=== PATIENT | female | born 1945 | race Asian ===

== ENCOUNTER 2024-07-03 22:41 | Inpatient (IN) | payer MEDICARE ==
[~2024-07-03] VITALS: Ht 157.5 cm; Wt 55.0 kg
[2024-07-04] MEDS: ONDANSETRON HCL 4 MG/2 ML VIAL IVP ONE (00:10)
[2024-07-04] MEDS: SODIUM CHLORIDE 0.9% 2,000 ML IV ONE (00:10)
[2024-07-04 00:19] LABS: EOSINOPHILS % (AUTO) 0 % (1.0-6.0); MEAN CORPUSCULAR HGB CONC 32.8 G/dL (31.0-37.0); RED CELL DISTRIBUTION WIDTH 14.2 % (11.5-14.5); WHITE BLOOD COUNT (AUTO) 8.6 K/uL (4.5-11.0)
[2024-07-04] MEDS: INSULIN REGULAR, HUMAN 100 UNITS/ML IVP ONE (00:20)
[2024-07-04 00:26] LABS: BASOPHILS % (AUTO) 0.2 % (0.0-2.0); HEMATOCRIT 41.8 % (36-46); HEMOGLOBIN 13.7 g/dL (12.0-16.0); LYMPHOCYTES # (AUTO) 1.3 K/uL (1.0-4.8); LYMPHOCYTES % (AUTO) 15.3 % (22.0-44.0); MEAN CORPUSCULAR HEMOGLOBIN 25.2 pg (26.0-34.0); MEAN CORPUSCULAR VOLUME 77 fL (80-100); MONOCYTES # (AUTO) 0.6 K/uL (0.1-1.0); MONOCYTES % (AUTO) 7.1 % (2.0-9.0); NEUTROPHILS # (AUTO) 6.7 K/uL (1.8-7.7); NEUTROPHILS % (AUTO) 77.4 % (40.0-70.0); PLATELET COUNT (AUTO) 323 K/uL (150-450); RED BLOOD CELL COUNT(AUTO) 5.43 MIL/uL (4.00-5.20)
[2024-07-04 00:29] LABS: RBC MORPHOLOGY COMMENT ABNORMAL RBC MORPH
[2024-07-04 00:35] LABS: COVID AG,FIA SOURCE NASAL SWAB
[2024-07-04 00:36] LABS: ALANINE AMINOTRANSFERASE 23 U/L (12-78); ALBUMIN 3.8 g/dL (3.4-5.0); ALKALINE PHOSPHATASE 147 U/L (46-116); ANION GAP 21 mmol/L (8-16); ASPARTATE AMINOTRANSFERASE 17 U/L (15-37); BILIRUBIN,TOTAL 0.5 mg/dL (0.1-1.0); CALCIUM, TOTAL 9.4 mg/dL (8.8-10.5); CARBON DIOXIDE 19 mmol/L (22-29); CHLORIDE 89 mmol/L (98-107); CREATININE 1.18 mg/dL (0.60-1.30); GLOMERULAR FILTR. RATE CALC 45 mL/min (>60); LACTIC ACID 3.4 mmol/L (0.4-2.0); LIPASE 178 U/L (16-77); POTASSIUM 4.5 mmol/L (3.5-5.1); SODIUM SERUM 129 mmol/L (136-145); TOTAL PROTEIN, SERUM 8.3 g/dL (6.4-8.2); TROPONIN I-HIGH SENSITIVITY 67 ng/L (<51); UREA NITROGEN, BLOOD 22 mg/dL (7-18)
[2024-07-04 00:39] LABS: B-TYPE NATRIURETIC PEPTIDE 332 pg/mL (0-100)
[2024-07-04 00:41] LABS: GLUCOSE,RANDOM 452 mg/dL (70-110)
[2024-07-04 00:56] LABS: APPEARANCE,URINE CLEAR (CLEAR); BILIRUBIN,URINE NEGATIVE (NEGATIVE); COLOR,URINE LIGHT YELLOW (YELLOW); GLUCOSE, URINE (UA) >=1000 mg/dL (NEGATIVE); KETONES,URINE 40-60 mg/dL (NEGATIVE); LEUKOCYTE ESTERASE ,URINE NEGATIVE (NEGATIVE); NITRATE,URINE NEGATIVE (NEGATIVE); OCCULT BLOOD,URINE NEGATIVE (NEGATIVE); PH,URINE 5.5 (5.0-8.0); PROTEIN,URINE 30-70 mg/dL (NEGATIVE); UROBILINOGEN,URINE <=1.0 mg/dL (<=1.0)
[2024-07-04] MEDS ORDERED: FLUO-342 PO (00:59)
[2024-07-04] MEDS ORDERED: SITA100 PO (00:59)
[2024-07-04] MEDS ORDERED: DORZ10DR6 OU (00:59)
[2024-07-04] MEDS ORDERED: ASPI-1450 PO (00:59)
[2024-07-04] MEDS ORDERED: NIFE-141 PO (00:59)
[2024-07-04] MEDS ORDERED: LANS-78 PO (00:59)
[2024-07-04] MEDS ORDERED: LOSA-381 PO (00:59)
[2024-07-04] MEDS ORDERED: CARV6 PO (00:59)
[2024-07-04] MEDS ORDERED: SPIR-37 PO (00:59)
[2024-07-04] MEDS ORDERED: ATOR20TA PO (00:59)
[2024-07-04] MEDS ORDERED: VALP250C48 PO (00:59)
[2024-07-04] MEDS ORDERED: INSLAN SQ (00:59)
[2024-07-04 01:19] LABS: INFLUENZA TYPE A NEGATIVE FOR TYPE A (NEGATIVE); INFLUENZA TYPE B NEGATIVE FOR TYPE B (NEGATIVE); SARS-COV2 (COVID) ANTIGEN,FIA Negative (Negative)
[2024-07-04 01:20] LABS: GLUCOMETER DEV NAME(LOC) ERT.6; GLUCOSE,POINT OF CARE 338 MG/DL (70-110)
[2024-07-04 01:27] LABS: BACTERIA,URINE None Seen /HPF (None Seen); RBC,URINE None Seen /HPF (0-2); SQUAMOUS EPITHELIAL CELL,UR Few /LPF (None Seen); WBC,URINE None Seen /HPF (0-5)
[2024-07-04 01:36] LABS: TROPONIN I-HIGH SENSITIVITY 75 ng/L (<51)
[2024-07-04] MEDS ORDERED: IOHEXOL 350 MG/ML 100 ML VIAL ONE (01:55)
[2024-07-04] MEDS: SODIUM CHLORIDE 0.9% 1,000 ML IV ONE (02:09)
[2024-07-04 02:10] LABS: ABG CARBOXYHEMOGLOBIN 1.1 % (0.5-1.5); ABG HCO3 21.3 mmol/L (21.0-28.0); ABG METHEMOGLOBIN 0.4 % (0.0-1.5); ABG OXYGEN CONTENT 17.3 mL/dL (15.0-23.0); ABG OXYGEN SATURATION 96.4 % (94.0-98.0); ABG PCO2 29 mmHg (32.0-45.0); ABG PH 7.435 (7.350-7.450); ABG TOTAL HEMOGLOBIN 12.9 G/dL (12.0-16.0); PO2, ARTERIAL BG 81.2 mmHg (83.0-108.0); SOURCE, BLOOD GAS ARTERIAL; TEMPERATURE, FAHRENHEIT, BG 98.4 FAHREN (96.0-98.6)
[2024-07-04 02:10] LABS: GLUCOMETER DEV NAME(LOC) ERT.6; GLUCOSE,POINT OF CARE 267 MG/DL (70-110)
[2024-07-04 02:11] LABS: ABG A-A DIFF O2 33.6 mmHg (10-20.0); ALLEN TEST, BLOOD GAS Positive; O2 DEVICE,BLOOD GAS ROOM AIR (ROOM AIR); SITE, BLOOD GAS RT RADIAL
[2024-07-04] MEDS: OMEPRAZOLE 20 MG CAPSULE PO ONE (04:48)
[2024-07-04] MEDS: LORazepam 2 MG/ML VIAL IVP ONE (04:49)
[2024-07-04] MEDS: RINGERS SOLUTION,LACTATED 1,000 ML IV ONE (04:49)
[2024-07-04 06:56] LABS: GLUCOMETER DEV NAME(LOC) ERT.6; GLUCOSE,POINT OF CARE 259 MG/DL (70-110)
[2024-07-04 07:47] VITALS: BP 170/78; PULSE 70; RESP 18; TEMP 98.3; O2SAT 98
[2024-07-04 08:23] VITALS: BP 170/78; PULSE 69; RESP 18; TEMP 98.3; O2SAT 97
[2024-07-04] MEDS: HydrALAZINE HCL 20 MG/ML VIAL IVP PRN (11:09)
[2024-07-04] MEDS: ONDANSETRON HCL 4 MG/2 ML VIAL IVP PRN (11:10)
[2024-07-04 12:00] VITALS: BP 153/88; PULSE 96; RESP 18; TEMP 97.6; O2SAT 99
[2024-07-04] MEDS ORDERED: DEXTROSE 50%-WATER 25 GM/50 ML SYRINGE IVP PRN (12:30)
[2024-07-04] MEDS: INSULIN LISPRO 100 UNITS/ML SQ PRN (12:34)
[2024-07-04] MEDS: SODIUM CHLORIDE 0.45% 1,000 ML IV ONE (12:37)
[2024-07-04 12:51] LABS: GLUCOMETER DEV NAME(LOC) 5N.2C; GLUCOSE,POINT OF CARE 357 MG/DL (70-110)
[2024-07-04 15:06] LABS: GLUCOMETER DEV NAME(LOC) 5N.1D; GLUCOSE,POINT OF CARE 336 MG/DL (70-110)
[2024-07-04 15:47] LABS: TROPONIN I-HIGH SENSITIVITY 77 ng/L (<51)
[2024-07-04 15:58] VITALS: BP 135/69; PULSE 86; RESP 18; TEMP 98; O2SAT 98
[2024-07-04] MEDS: PANTOPRAZOLE SODIUM 40 MG DR TABLET PO SCH (17:26)
[2024-07-04 18:40] LABS: BASOPHILS % (AUTO) 0.4 % (0.0-2.0); EOSINOPHILS % (AUTO) 1.1 % (1.0-6.0); HEMATOCRIT 39.4 % (36-46); LYMPHOCYTES # (AUTO) 2.4 K/uL (1.0-4.8); LYMPHOCYTES % (AUTO) 25.6 % (22.0-44.0); MEAN CORPUSCULAR HEMOGLOBIN 25.4 pg (26.0-34.0); MEAN CORPUSCULAR HGB CONC 32.9 G/dL (31.0-37.0); MEAN CORPUSCULAR VOLUME 77 fL (80-100); MONOCYTES # (AUTO) 0.8 K/uL (0.1-1.0); NEUTROPHILS # (AUTO) 5.9 K/uL (1.8-7.7); NEUTROPHILS % (AUTO) 63.9 % (40.0-70.0); PLATELET COUNT (AUTO) 317 K/uL (150-450); RED CELL DISTRIBUTION WIDTH 14.4 % (11.5-14.5); WHITE BLOOD COUNT (AUTO) 9.2 K/uL (4.5-11.0)
[2024-07-04 18:52] LABS: CALCIUM, TOTAL 8.7 mg/dL (8.8-10.5); CREATININE 1.23 mg/dL (0.60-1.30); POTASSIUM 4.1 mmol/L (3.5-5.1)
[2024-07-04 19:05] LABS: BILIRUBIN,TOTAL 0.3 mg/dL (0.1-1.0); MAGNESIUM 1.8 mg/dL (1.80-2.40)
[2024-07-04 19:46] LABS: GLUCOMETER DEV NAME(LOC) 5N.2C; GLUCOSE,POINT OF CARE 261 MG/DL (70-110)
[2024-07-04 19:46] LABS: GLUCOMETER DEV NAME(LOC) 5N.2C; GLUCOSE,POINT OF CARE 213 MG/DL (70-110)
[2024-07-04 21:00] VITALS: BP 149/79; PULSE 93; RESP 20; TEMP 98.7; O2SAT 96
[2024-07-04] MEDS: SODIUM CHLORIDE 0.45% 1,000 ML IV SCH (21:13)
[2024-07-04] MEDS: CARVEDILOL 3.125 MG TABLET PO SCH (21:13)
[2024-07-04 22:35] LABS: CALCIUM, TOTAL 8.5 mg/dL (8.8-10.5); CREATININE 1.08 mg/dL (0.60-1.30); POTASSIUM 3.6 mmol/L (3.5-5.1)
[2024-07-04 23:45] LABS: GLUCOMETER DEV NAME(LOC) 5N.1D; GLUCOSE,POINT OF CARE 248 MG/DL (70-110)
[2024-07-04 23:45] LABS: GLUCOMETER DEV NAME(LOC) 5N.1D; GLUCOSE,POINT OF CARE 184 MG/DL (70-110)
[2024-07-05] VITALS (7 sets, daily range): BP systolic 123–150; BP diastolic 56–81; PULSE 70–94; RESP 18–20; TEMP 98.3–98.9; O2SAT 94–98
[2024-07-05 01:36] LABS: GLUCOMETER DEV NAME(LOC) 5N.2C; GLUCOSE,POINT OF CARE 258 MG/DL (70-110)
[2024-07-05 08:45] LABS: GLUCOMETER DEV NAME(LOC) 5N.2C; GLUCOSE,POINT OF CARE 221 MG/DL (70-110)
[2024-07-05 08:45] LABS: GLUCOMETER DEV NAME(LOC) 5N.1D; GLUCOSE,POINT OF CARE 111 MG/DL (70-110)
[2024-07-05 08:45] LABS: GLUCOMETER DEV NAME(LOC) 5N.2C; GLUCOSE,POINT OF CARE 230 MG/DL (70-110)
[2024-07-05 09:16] LABS: ANION GAP 12 mmol/L (8-16); CALCIUM, TOTAL 8.4 mg/dL (8.8-10.5); CARBON DIOXIDE 23 mmol/L (22-29); CHLORIDE 99 mmol/L (98-107); GLOMERULAR FILTR. RATE CALC > 60 mL/min (>60); GLUCOSE,RANDOM 193 mg/dL (70-110); PHOSPHORUS 2.7 mg/dL (2.5-4.9); POTASSIUM 3.6 mmol/L (3.5-5.1); SODIUM SERUM 134 mmol/L (136-145); UREA NITROGEN, BLOOD 12 mg/dL (7-18)
[2024-07-05] MEDS: NIFEdipine 30 MG ER TABLET PO SCH (09:36)
[2024-07-05 09:43] LABS: TROPONIN I-HIGH SENSITIVITY 131 ng/L (<51)
[2024-07-05] MEDS ORDERED: NIFEdipine 30 MG ER TABLET PO SCH (10:15)
[2024-07-05] MEDS ORDERED: SPIRONOLACTONE 25 MG TABLET PO SCH (10:15)
[2024-07-05] MEDS ORDERED: CARVEDILOL 6.25 MG TABLET PO SCH (10:15)
[2024-07-05] MEDS: ASPIRIN 81 MG CHEWABLE TABLET PO SCH (11:13)
[2024-07-05] MEDS: ATORVASTATIN CALCIUM 20 MG TABLET PO SCH (11:13)
[2024-07-05] MEDS: LOSARTAN POTASSIUM 25 MG TABLET PO SCH (11:13)
[2024-07-05 11:16] LABS: GLUCOMETER DEV NAME(LOC) 5N.1D; GLUCOSE,POINT OF CARE 329 MG/DL (70-110)
[2024-07-05] MEDS: INSULIN GLARGINE,HUM.REC.ANLOG 100 UNITS/ML SQ SCH (11:19)
[2024-07-05] MEDS: DORZOLAMIDE HCL 2% 10 ML OPHTHALMIC SOLUTION OU SCH (12:00)
[2024-07-05] MEDS: SitaGLIPtin PHOSPHATE 100 MG TABLET PO SCH (12:00)
[2024-07-05] MEDS: FLUoxetine HCL 10 MG CAPSULE PO SCH (12:00)
[2024-07-05] MEDS: VALPROIC ACID 250 MG CAPSULE PO SCH (12:00)
[2024-07-05 14:31] LABS: GLUCOMETER DEV NAME(LOC) 5N.2C; GLUCOSE,POINT OF CARE 201 MG/DL (70-110)
[2024-07-05 17:05] LABS: GLUCOMETER DEV NAME(LOC) 5N.2C; GLUCOSE,POINT OF CARE 103 MG/DL (70-110)
[2024-07-05 20:56] LABS: GLUCOMETER DEV NAME(LOC) 5N.2C; GLUCOSE,POINT OF CARE 141 MG/DL (70-110)
[2024-07-05 21:06] LABS: GLUCOMETER DEV NAME(LOC) 5N.1D; GLUCOSE,POINT OF CARE 74 MG/DL (70-110)
[2024-07-05 21:06] LABS: GLUCOMETER DEV NAME(LOC) 5N.1D; GLUCOSE,POINT OF CARE 321 MG/DL (70-110)
[2024-07-06 01:51] LABS: GLUCOMETER DEV NAME(LOC) 5N.2C; GLUCOSE,POINT OF CARE 193 MG/DL (70-110)
[2024-07-06 01:51] LABS: GLUCOMETER DEV NAME(LOC) 5N.2C; GLUCOSE,POINT OF CARE 192 MG/DL (70-110)
[2024-07-06 06:31] LABS: GLUCOMETER DEV NAME(LOC) 5N.1D; GLUCOSE,POINT OF CARE 177 MG/DL (70-110)
[2024-07-06 06:31] LABS: GLUCOMETER DEV NAME(LOC) 5N.1D; GLUCOSE,POINT OF CARE 170 MG/DL (70-110)
[2024-07-06 06:31] LABS: GLUCOMETER DEV NAME(LOC) 5N.1D; GLUCOSE,POINT OF CARE 101 MG/DL (70-110)
[2024-07-06 07:30] VITALS: BP 130/67; PULSE 72; RESP 18; TEMP 98.7; O2SAT 97
[2024-07-06 07:34] LABS: CALCIUM, TOTAL 8.3 mg/dL (8.8-10.5); CREATININE 0.91 mg/dL (0.60-1.30); POTASSIUM 3.5 mmol/L (3.5-5.1)
[2024-07-06 07:38] LABS: TROPONIN I-HIGH SENSITIVITY 82 ng/L (<51)
[2024-07-06 07:54] LABS: THYROID STIMULATING HORMONE 1.94 uIU/mL (0.36-3.74)
[2024-07-06 08:00] LABS: GLUCOMETER DEV NAME(LOC) 5N.2C; GLUCOSE,POINT OF CARE 112 MG/DL (70-110)
[2024-07-06 11:30] VITALS: BP 138/74; PULSE 89; RESP 18; TEMP 98; O2SAT 97
[2024-07-06 13:56] LABS: GLUCOMETER DEV NAME(LOC) 5N.2C; GLUCOSE,POINT OF CARE 274 MG/DL (70-110)
[2024-07-06 13:56] LABS: GLUCOMETER DEV NAME(LOC) 5N.2C; GLUCOSE,POINT OF CARE 299 MG/DL (70-110)
[2024-07-06 13:56] LABS: GLUCOMETER DEV NAME(LOC) 5N.2C; GLUCOSE,POINT OF CARE 225 MG/DL (70-110)
[2024-07-06 15:15] VITALS: BP 108/49; PULSE 72; RESP 18; TEMP 99; O2SAT 98
[2024-07-06 20:56] LABS: GLUCOMETER DEV NAME(LOC) 5N.2C; GLUCOSE,POINT OF CARE 126 MG/DL (70-110)
[2024-07-06 20:56] LABS: GLUCOMETER DEV NAME(LOC) 5N.2C; GLUCOSE,POINT OF CARE 136 MG/DL (70-110)
[2024-07-06 21:10] VITALS: BP 123/72; PULSE 74; RESP 20; TEMP 98.4; O2SAT 98
[2024-07-06 22:55] LABS: GLUCOMETER DEV NAME(LOC) 5N.2C; GLUCOSE,POINT OF CARE 195 MG/DL (70-110)
[2024-07-07 00:30] VITALS: BP 119/58; PULSE 83; RESP 20; TEMP 98.2; O2SAT 96
[2024-07-07 05:00] VITALS: BP 129/68; PULSE 71; RESP 20; TEMP 98.7; O2SAT 96
[2024-07-07 07:55] LABS: GLUCOMETER DEV NAME(LOC) 5N.1D; GLUCOSE,POINT OF CARE 240 MG/DL (70-110)
[2024-07-07 08:29] VITALS: BP 131/75; PULSE 96; RESP 18; TEMP 97.7; O2SAT 98
[2024-07-07 12:42] VITALS: BP 137/68; PULSE 95; RESP 18; TEMP 98; O2SAT 97
[2024-07-07 13:10] LABS: GLUCOMETER DEV NAME(LOC) 5S.2D; GLUCOSE,POINT OF CARE 228 MG/DL (70-110)
[2024-07-07 15:47] VITALS: BP 115/49; PULSE 76; RESP 18; TEMP 99.3; O2SAT 94
[2024-07-07 20:16] LABS: GLUCOMETER DEV NAME(LOC) 5S.1D; GLUCOSE,POINT OF CARE 167 MG/DL (70-110)
[2024-07-07] MEDS: CARVEDILOL 6.25 MG TABLET PO SCH (21:16)
[2024-07-07 21:47] VITALS: BP 139/78; PULSE 75; RESP 19; TEMP 98.6; O2SAT 96
[2024-07-08 06:21] LABS: GLUCOMETER DEV NAME(LOC) 5S.1D; GLUCOSE,POINT OF CARE 142 MG/DL (70-110)
[2024-07-08 06:35] VITALS: BP 140/77; PULSE 77; RESP 18; TEMP 98.9; O2SAT 97
[2024-07-08 06:41] LABS: BASOPHILS % (AUTO) 0.2 % (0.0-2.0); EOSINOPHILS % (AUTO) 0.9 % (1.0-6.0); HEMATOCRIT 37.7 % (36-46); HEMOGLOBIN 12.6 g/dL (12.0-16.0); LYMPHOCYTES # (AUTO) 1.8 K/uL (1.0-4.8); LYMPHOCYTES % (AUTO) 17.6 % (22.0-44.0); MEAN CORPUSCULAR HEMOGLOBIN 25.7 pg (26.0-34.0); MEAN CORPUSCULAR HGB CONC 33.4 G/dL (31.0-37.0); MEAN CORPUSCULAR VOLUME 77 fL (80-100); MONOCYTES # (AUTO) 1.2 K/uL (0.1-1.0); MONOCYTES % (AUTO) 11.6 % (2.0-9.0); NEUTROPHILS # (AUTO) 7.1 K/uL (1.8-7.7); NEUTROPHILS % (AUTO) 69.7 % (40.0-70.0); PLATELET COUNT (AUTO) 266 K/uL (150-450); RED CELL DISTRIBUTION WIDTH 14.8 % (11.5-14.5); WHITE BLOOD COUNT (AUTO) 10.2 K/uL (4.5-11.0)
[2024-07-08 06:58] LABS: CALCIUM, TOTAL 8.6 mg/dL (8.8-10.5); CREATININE 0.96 mg/dL (0.60-1.30); POTASSIUM 4.1 mmol/L (3.5-5.1)
[2024-07-08 08:51] LABS: GLUCOMETER DEV NAME(LOC) 5S.1D; GLUCOSE,POINT OF CARE 325 MG/DL (70-110)
[2024-07-08 09:18] VITALS: BP 138/69; PULSE 77; RESP 20; TEMP 99.7; O2SAT 98
[2024-07-08 11:00] VITALS: BP 135/69; PULSE 70; RESP 20; TEMP 98.9; O2SAT 97
[2024-07-08 11:45] LABS: GLUCOMETER DEV NAME(LOC) 5S.1D; GLUCOSE,POINT OF CARE 237 MG/DL (70-110)
== END 2024-07-08 15:06 | DRG 637 ==
LOC: EMS 22:42 → EDH 07-04 01:24 → 5N 07-04 08:15 → 4E 07-07 15:50
PROVIDERS: ADMIT Family Medicine; ATTEND Family Medicine
DX: E11.10 Type 2 diabetes mellitus with ketoacidosis without coma (principal); I50.43 Acute on chronic combined systolic (congestive) and diastolic (congestive) heart failure; N17.9 Acute kidney failure, unspecified; I11.0 Hypertensive heart disease with heart failure; K21.9 Gastro-esophageal reflux disease without esophagitis; Z20.822 Contact with and (suspected) exposure to COVID-19; R79.89 Other specified abnormal findings of blood chemistry; E78.5 Hyperlipidemia, unspecified; F32.A Depression, unspecified; Z91.010 Allergy to peanuts; Z79.4 Long term (current) use of insulin; Z88.8 Allergy status to other drugs, medicaments and biological substances
CPT/HCPCS: 36600; 71045; 74177; 80048; 80053; 80076; 81001; 82009; 82805; 82962; 83036; 83605; 83690; 83735; 83880; 84100; 84443; 84484; 85025; 87081; 87481; 87804; 93005; 93306; 99285; G0378; J0360; J1815; J2060; J2405; J7030; J7120; 36415-L1; 36415-TC

== ENCOUNTER 2024-09-01 14:41 | Inpatient (IN) | payer MEDICARE, OTHER ==
[~2024-09-01] VITALS: Ht 144.8 cm; Wt 63.1 kg
[~2024-09-01 14:41] MED LIST: ASPI-1450 PO; ATOR20TA PO; CARV6.25 PO; DORZ10DR6 OU; FLUO-342 PO; INSLAN SQ; LANS-78 PO; LOSA-381 PO; NIFE-141 PO; SITA100 PO; SPIR-37 PO; VALP250C48 PO
[2024-09-01 16:08] LABS: ANION GAP 11 mmol/L (8-16); CALCIUM, TOTAL 8.3 mg/dL (8.8-10.5); CARBON DIOXIDE 23 mmol/L (22-29); CHLORIDE 102 mmol/L (98-107); CREATININE 1.53 mg/dL (0.60-1.30); GLOMERULAR FILTR. RATE CALC 33 mL/min (>60); GLUCOSE,RANDOM 185 mg/dL (70-110); POTASSIUM 5.1 mmol/L (3.5-5.1); SODIUM SERUM 136 mmol/L (136-145); UREA NITROGEN, BLOOD 28 mg/dL (7-18)
[2024-09-01 16:09] LABS: BASOPHILS % (AUTO) 0.6 % (0.0-2.0); EOSINOPHILS % (AUTO) 2.4 % (1.0-6.0); HEMATOCRIT 38.7 % (36-46); HEMOGLOBIN 12.6 g/dL (12.0-16.0); LYMPHOCYTES # (AUTO) 1.9 K/uL (1.0-4.8); LYMPHOCYTES % (AUTO) 30.6 % (22.0-44.0); MEAN CORPUSCULAR HEMOGLOBIN 25.4 pg (26.0-34.0); MEAN CORPUSCULAR HGB CONC 32.6 G/dL (31.0-37.0); MEAN CORPUSCULAR VOLUME 78 fL (80-100); MONOCYTES # (AUTO) 0.6 K/uL (0.1-1.0); MONOCYTES % (AUTO) 9.4 % (2.0-9.0); NEUTROPHILS # (AUTO) 3.5 K/uL (1.8-7.7); PLATELET COUNT (AUTO) 218 K/uL (150-450); RED BLOOD CELL COUNT(AUTO) 4.96 MIL/uL (4.00-5.20); RED CELL DISTRIBUTION WIDTH 15.7 % (11.5-14.5); WHITE BLOOD COUNT (AUTO) 6.2 K/uL (4.5-11.0)
[2024-09-01 16:14] LABS: ALBUMIN 2.6 g/dL (3.4-5.0); BILIRUBIN,DIRECT 0.1 mg/dL (0.00-0.20); BILIRUBIN,TOTAL 0.2 mg/dL (0.1-1.0); TOTAL PROTEIN, SERUM 6.8 g/dL (6.4-8.2)
[2024-09-01 16:18] LABS: CREATINE KINASE, TOTAL ONLY 43 U/L (26-192); VALPROIC ACID 66 mcg/mL (50-100)
[2024-09-01 16:20] LABS: TROPONIN I-HIGH SENSITIVITY 108 ng/L (<51)
[2024-09-01 16:31] LABS: B-TYPE NATRIURETIC PEPTIDE 71 pg/mL (0-100)
[2024-09-01 18:15] LABS: TROPONIN I-HIGH SENSITIVITY 106 ng/L (<51)
[2024-09-01] MEDS ORDERED: NIFE10CA50 PO (19:05)
[2024-09-01] MEDS ORDERED: ACETAMINOPHEN 325 MG TABLET PO PRN (20:30)
[2024-09-01] MEDS ORDERED: MORPHINE SULFATE 2 MG/ML SYRINGE IVP PRN (20:30)
[2024-09-01] MEDS ORDERED: MAGNESIUM HYDROXIDE SUSPENSION 30 ML UDCUP PO PRN (20:30)
[2024-09-01] MEDS ORDERED: BISACODYL 10 MG RECTAL RECTAL SUPPOSITORY PR PRN (20:30)
[2024-09-01] MEDS ORDERED: ONDANSETRON HCL 4 MG/2 ML VIAL IVP PRN (20:30)
[2024-09-01] MEDS ORDERED: HYDROCODONE/ACETAMINOPHEN 5-325 MG TABLET PO PRN (20:30)
[2024-09-01] MEDS ORDERED: ZOLPIDEM TARTRATE 5 MG TABLET PO PRN (20:30)
[2024-09-01] MEDS: DOCUSATE SODIUM 100 MG CAPSULE PO SCH (21:16)
[2024-09-01] MEDS: CARVEDILOL 6.25 MG TABLET PO SCH (21:16)
[2024-09-01] MEDS: NIFEdipine 10 MG CAPSULE PO SCH (21:16)
[2024-09-01 21:37] VITALS: BP 107/59; PULSE 80; RESP 18; TEMP 99.1; O2SAT 99
[2024-09-01] MEDS: VALPROIC ACID 250 MG CAPSULE PO SCH (22:16)
[2024-09-01] MEDS: HEPARIN SODIUM,PORCINE 5,000 UNITS/ML VIAL SQ SCH (23:12)
[2024-09-01 23:14] VITALS: BP 122/64; PULSE 61; RESP 19; TEMP 97.7; O2SAT 97
[2024-09-02] VITALS (7 sets, daily range): BP systolic 103–117; BP diastolic 50–91; PULSE 63–80; RESP 16–18; TEMP 97.5–99.1; O2SAT 95–99
[2024-09-02 07:00] LABS: BASOPHILS % (AUTO) 0.7 % (0.0-2.0); EOSINOPHILS % (AUTO) 3.9 % (1.0-6.0); HEMATOCRIT 37.3 % (36-46); HEMOGLOBIN 12.3 g/dL (12.0-16.0); LYMPHOCYTES # (AUTO) 2.3 K/uL (1.0-4.8); LYMPHOCYTES % (AUTO) 42.8 % (22.0-44.0); MEAN CORPUSCULAR HEMOGLOBIN 25.6 pg (26.0-34.0); MEAN CORPUSCULAR VOLUME 78 fL (80-100); MONOCYTES # (AUTO) 0.6 K/uL (0.1-1.0); NEUTROPHILS # (AUTO) 2.2 K/uL (1.8-7.7); NEUTROPHILS % (AUTO) 41.6 % (40.0-70.0); PLATELET COUNT (AUTO) 206 K/uL (150-450); RED BLOOD CELL COUNT(AUTO) 4.81 MIL/uL (4.00-5.20); RED CELL DISTRIBUTION WIDTH 15.9 % (11.5-14.5); WHITE BLOOD COUNT (AUTO) 5.3 K/uL (4.5-11.0)
[2024-09-02 07:11] LABS: CALCIUM, TOTAL 8.3 mg/dL (8.8-10.5); CREATININE 1.08 mg/dL (0.60-1.30); POTASSIUM 4.1 mmol/L (3.5-5.1)
[2024-09-02] MEDS: LOSARTAN POTASSIUM 25 MG TABLET PO SCH (08:50)
[2024-09-02] MEDS: ASPIRIN 81 MG CHEWABLE TABLET PO SCH (08:50)
[2024-09-02] MEDS: FLUoxetine HCL 10 MG CAPSULE PO SCH (08:51)
[2024-09-02] MEDS: SitaGLIPtin PHOSPHATE 100 MG TABLET PO SCH (08:51)
[2024-09-02] MEDS: ATORVASTATIN CALCIUM 20 MG TABLET PO SCH (08:51)
[2024-09-02] MEDS: PANTOPRAZOLE SODIUM 40 MG DR TABLET PO SCH (08:53)
[2024-09-02] MEDS: SPIRONOLACTONE 25 MG TABLET PO SCH (09:20)
[2024-09-02 19:50] LABS: APPEARANCE,URINE CLEAR (CLEAR); BILIRUBIN,URINE NEGATIVE (NEGATIVE); COLOR,URINE LIGHT YELLOW (YELLOW); GLUCOSE, URINE (UA) 70-100 mg/dL (NEGATIVE); KETONES,URINE NEGATIVE (NEGATIVE); LEUKOCYTE ESTERASE ,URINE NEGATIVE (NEGATIVE); NITRATE,URINE NEGATIVE (NEGATIVE); OCCULT BLOOD,URINE NEGATIVE (NEGATIVE); PROTEIN,URINE NEGATIVE (NEGATIVE); UROBILINOGEN,URINE <=1.0 mg/dL (<=1.0)
[2024-09-02 20:04] LABS: BACTERIA,URINE Rare /HPF (None Seen); RBC,URINE 0-2 /HPF (0-2); SQUAMOUS EPITHELIAL CELL,UR Few /LPF (None Seen); WBC,URINE 0-2 /HPF (0-5)
[2024-09-02 20:06] LABS: AMPHET/METH SCREEN,URINE NEGATIVE (NEGATIVE); BARBITURATE SCREEN, URINE NEGATIVE (NEGATIVE); BENZODIAZEPINES SCREEN,URINE NEGATIVE (NEGATIVE); CANNABINOID SCREEN,URINE NEGATIVE (NEGATIVE); COCAINE SCREEN,URINE NEGATIVE (NEGATIVE); METHADONE SCREEN, URINE NEGATIVE (NEGATIVE); OPIATE SCREEN,URINE NEGATIVE (NEGATIVE); PHENCYCLIDINE SCREEN,URINE NEGATIVE (NEGATIVE)
[2024-09-02 20:09] LABS: ALCOHOL, URINE DRUG SCREEN NEGATIVE (NEGATIVE)
[2024-09-03 04:02] VITALS: BP 106/59; PULSE 64; RESP 18; TEMP 98; O2SAT 99
[2024-09-03 06:57] LABS: BASOPHILS % (AUTO) 0.5 % (0.0-2.0); EOSINOPHILS % (AUTO) 3.1 % (1.0-6.0); HEMATOCRIT 36.6 % (36-46); HEMOGLOBIN 12.2 g/dL (12.0-16.0); LYMPHOCYTES # (AUTO) 2.3 K/uL (1.0-4.8); LYMPHOCYTES % (AUTO) 41.6 % (22.0-44.0); MEAN CORPUSCULAR HEMOGLOBIN 25.7 pg (26.0-34.0); MEAN CORPUSCULAR HGB CONC 33.2 G/dL (31.0-37.0); MEAN CORPUSCULAR VOLUME 78 fL (80-100); MONOCYTES # (AUTO) 0.5 K/uL (0.1-1.0); MONOCYTES % (AUTO) 9.7 % (2.0-9.0); NEUTROPHILS # (AUTO) 2.4 K/uL (1.8-7.7); NEUTROPHILS % (AUTO) 45.1 % (40.0-70.0); PLATELET COUNT (AUTO) 191 K/uL (150-450); RED BLOOD CELL COUNT(AUTO) 4.72 MIL/uL (4.00-5.20); RED CELL DISTRIBUTION WIDTH 15.8 % (11.5-14.5); WHITE BLOOD COUNT (AUTO) 5.4 K/uL (4.5-11.0)
[2024-09-03 07:03] LABS: CALCIUM, TOTAL 8.2 mg/dL (8.8-10.5); CREATININE 1.08 mg/dL (0.60-1.30); POTASSIUM 4.1 mmol/L (3.5-5.1)
[2024-09-03 08:05] VITALS: BP 106/60; PULSE 66; RESP 19; TEMP 97.8; O2SAT 98
[2024-09-03 10:56] LABS: RBC MORPHOLOGY COMMENT ABNORMAL RBC MORPH
[2024-09-03 11:10] VITALS: BP 105/52; PULSE 68; RESP 19; TEMP 98; O2SAT 97
[2024-09-03 15:16] VITALS: BP 117/58; PULSE 65; RESP 19; TEMP 98.1; O2SAT 95
[2024-09-03 20:00] VITALS: BP 128/68; PULSE 64; RESP 19; TEMP 97.3; O2SAT 96
[2024-09-03 23:54] VITALS: BP 140/73; PULSE 66; RESP 19; TEMP 98.2; O2SAT 98
[2024-09-04 04:20] VITALS: BP 107/58; PULSE 64; RESP 19; TEMP 98.2; O2SAT 99
[2024-09-04 06:15] LABS: BASOPHILS % (AUTO) 0.5 % (0.0-2.0); HEMATOCRIT 36.4 % (36-46); HEMOGLOBIN 12.1 g/dL (12.0-16.0); LYMPHOCYTES # (AUTO) 2.4 K/uL (1.0-4.8); LYMPHOCYTES % (AUTO) 44.7 % (22.0-44.0); MEAN CORPUSCULAR HEMOGLOBIN 25.7 pg (26.0-34.0); MEAN CORPUSCULAR HGB CONC 33.2 G/dL (31.0-37.0); MEAN CORPUSCULAR VOLUME 77 fL (80-100); MONOCYTES # (AUTO) 0.6 K/uL (0.1-1.0); MONOCYTES % (AUTO) 11.9 % (2.0-9.0); NEUTROPHILS # (AUTO) 2.1 K/uL (1.8-7.7); NEUTROPHILS % (AUTO) 39.9 % (40.0-70.0); PLATELET COUNT (AUTO) 177 K/uL (150-450); RED BLOOD CELL COUNT(AUTO) 4.71 MIL/uL (4.00-5.20); RED CELL DISTRIBUTION WIDTH 15.6 % (11.5-14.5); WHITE BLOOD COUNT (AUTO) 5.3 K/uL (4.5-11.0)
[2024-09-04 06:25] LABS: CALCIUM, TOTAL 8.4 mg/dL (8.8-10.5); POTASSIUM 4.3 mmol/L (3.5-5.1)
[2024-09-04 07:45] VITALS: BP 111/62; PULSE 65; RESP 18; TEMP 98.1; O2SAT 98
[2024-09-04 08:08] LABS: RBC MORPHOLOGY COMMENT ABNORMAL RBC MORPH
[2024-09-04] MEDS ORDERED: DEUT6TAB PO (09:48)
[2024-09-04 12:03] VITALS: BP 117/72; PULSE 72; RESP 17; TEMP 98; O2SAT 98
[2024-09-04 15:36] VITALS: BP 110/68; PULSE 70; RESP 17; TEMP 98; O2SAT 99
== END 2024-09-04 16:30 | DRG 73 ==
LOC: EDUNIT# 14:41 → EMS 15:23 → EDH 18:22 → 5S 21:38
PROVIDERS: ADMIT Internal Medicine; ATTEND Internal Medicine
DX: G90.89 Other disorders of autonomic nervous system (principal); N17.0 Acute kidney failure with tubular necrosis; E11.9 Type 2 diabetes mellitus without complications; E78.5 Hyperlipidemia, unspecified; I10 Essential (primary) hypertension; F32.A Depression, unspecified; K21.9 Gastro-esophageal reflux disease without esophagitis; F99 Mental disorder, not otherwise specified; Z91.010 Allergy to peanuts; Z79.899 Other long term (current) drug therapy
CPT/HCPCS: 70450; 71045; 80048; 80076; 80164; 80307; 81001; 82550; 83735; 83880; 84484; 85025; 87081; 93005; 97116; 97162; 97165; 97535; 99285; J1644; 36415-L1; 36415-TC

== ENCOUNTER 2025-03-07 23:18 | Inpatient (IN) | payer MEDICARE, OTHER ==
[~2025-03-07] VITALS: Ht 139.7 cm; Wt 47.9 kg
[~2025-03-07 23:18] MED LIST changes: +CARV-165 PO; -CARV6.25 PO; +DEUT6TAB PO; -NIFE-141 PO; +NIFE10CA50 PO
[2025-03-07 23:41] LABS: GLUCOMETER DEV NAME(LOC) ER.7; GLUCOSE,POINT OF CARE 202 MG/DL (70-110)
[2025-03-08 00:05] LABS: PLATELET COUNT (AUTO) 121 K/uL (150-450); RED BLOOD CELL COUNT(AUTO) 5.44 MIL/uL (4.00-5.20); RED CELL DISTRIBUTION WIDTH 16.4 % (11.5-14.5); WHITE BLOOD COUNT (AUTO) 7.3 K/uL (4.5-11.0)
[2025-03-08 00:23] LABS: CALCIUM, TOTAL 8.8 mg/dL (8.8-10.5); CREATININE 1.22 mg/dL (0.60-1.30); GLOMERULAR FILTR. RATE CALC 43.0 mL/min (>60); GLUCOSE,RANDOM 209.0 mg/dL (70-110); SODIUM SERUM 133.0 mmol/L (136-145); UREA NITROGEN, BLOOD 26.0 mg/dL (7-18)
[2025-03-08 01:21] LABS: CREATINE KINASE, TOTAL ONLY 580 U/L (26-192); VALPROIC ACID 124 mcg/mL (50-100)
[2025-03-08 01:28] LABS: TROPONIN I-HIGH SENSITIVITY 188 ng/L (<51)
[2025-03-08] MEDS: SODIUM CHLORIDE 0.9% 1,000 ML IV ONE (01:52)
[2025-03-08 02:17] LABS: APPEARANCE,URINE CLEAR (CLEAR); GLUCOSE, URINE (UA) >=1000 mg/dL (NEGATIVE); LEUKOCYTE ESTERASE ,URINE MODERATE (NEGATIVE); NITRATE,URINE NEGATIVE (NEGATIVE); OCCULT BLOOD,URINE NEGATIVE (NEGATIVE); SPECIFIC GRAVITIY, URINE 1.019 (1.003-1.030)
[2025-03-08 02:24] LABS: SQUAMOUS EPITHELIAL CELL,UR Few /LPF (None Seen)
[2025-03-08] MEDS ORDERED: ONDANSETRON HCL 4 MG/2 ML VIAL IVP PRN (04:45)
[2025-03-08] MEDS ORDERED: DEXTROSE 50%-WATER 25 GM/50 ML SYRINGE IVP PRN (04:45)
[2025-03-08] MEDS ORDERED: ACETAMINOPHEN 325 MG TABLET PO PRN (04:45)
[2025-03-08] MEDS: RINGERS SOLUTION,LACTATED 1,000 ML IV SCH (05:24)
[2025-03-08] MEDS: ASPIRIN 81 MG CHEWABLE TABLET PO ONE (05:24)
[2025-03-08 05:37] LABS: TROPONIN I-HIGH SENSITIVITY 218 ng/L (<51)
[2025-03-08] MEDS: LORazepam 2 MG/ML VIAL IVP ONE (05:44)
[2025-03-08 08:11] VITALS: BP_SYST 112; BP_SYST 126; BP_DIAS 76; BP_DIAS 85; PULSE 61; PULSE 87; RESP 17; TEMP 97.7; TEMP 98.6; O2SAT 97; O2SAT 98
[2025-03-08] MEDS: HEPARIN SODIUM,PORCINE 5,000 UNITS/ML VIAL SQ SCH (08:28)
[2025-03-08] MEDS: DOCUSATE SODIUM 100 MG CAPSULE PO SCH (08:54)
[2025-03-08 09:46] LABS: TROPONIN I-HIGH SENSITIVITY 213 ng/L (<51)
[2025-03-08 11:48] VITALS: BP 132/83; PULSE 90; RESP 20; TEMP 97.7; O2SAT 97
[2025-03-08] MEDS: INSULIN LISPRO 100 UNITS/ML SQ PRN (11:58)
[2025-03-08 13:10] LABS: TROPONIN I-HIGH SENSITIVITY 208 ng/L (<51)
[2025-03-08 16:06] VITALS: BP 137/80; PULSE 91; RESP 16; TEMP 98.5; O2SAT 98
[2025-03-08 19:21] LABS: GLUCOMETER DEV NAME(LOC) 5N.1D; GLUCOSE,POINT OF CARE 150 MG/DL (70-110)
[2025-03-08 19:21] LABS: GLUCOMETER DEV NAME(LOC) 5N.1D; GLUCOSE,POINT OF CARE 192 MG/DL (70-110)
[2025-03-08 19:48] VITALS: BP 120/98; PULSE 105; RESP 19; TEMP 99; O2SAT 96
[2025-03-08] MEDS: INSULIN GLARGINE,HUM.REC.ANLOG 100 UNITS/ML SQ SCH (20:25)
[2025-03-09] VITALS (7 sets, daily range): BP systolic 115–154; BP diastolic 71–101; PULSE 103–115; RESP 17–18; TEMP 97.7–99.5; O2SAT 96–99
[2025-03-09] MEDS: LANSOPRAZOLE 30 MG CAPSULE PO SCH (05:38)
[2025-03-09 06:21] LABS: CALCIUM, TOTAL 8.9 mg/dL (8.8-10.5); CREATININE 0.93 mg/dL (0.60-1.30); GLOMERULAR FILTR. RATE CALC 58 mL/min (>60); GLUCOSE,RANDOM 170 mg/dL (70-110); SODIUM SERUM 137 mmol/L (136-145); UREA NITROGEN, BLOOD 25 mg/dL (7-18)
[2025-03-09 06:22] LABS: PLATELET COUNT (AUTO) 129 K/uL (150-450); RED BLOOD CELL COUNT(AUTO) 5.44 MIL/uL (4.00-5.20); RED CELL DISTRIBUTION WIDTH 16.4 % (11.5-14.5); WHITE BLOOD COUNT (AUTO) 10.7 K/uL (4.5-11.0)
[2025-03-09 06:32] LABS: TROPONIN I-HIGH SENSITIVITY 264 ng/L (<51)
[2025-03-09] MEDS: ATORVASTATIN CALCIUM 20 MG TABLET PO SCH (08:23)
[2025-03-09] MEDS: ASPIRIN 81 MG CHEWABLE TABLET PO SCH (08:23)
[2025-03-09] MEDS: VALPROIC ACID 250 MG CAPSULE PO SCH (08:23)
[2025-03-09] MEDS: SPIRONOLACTONE 25 MG TABLET PO SCH (08:23)
[2025-03-09] MEDS: DORZOLAMIDE HCL 2% 10 ML OPHTHALMIC SOLUTION OU SCH (08:24)
[2025-03-09 08:51] LABS: GLUCOMETER DEV NAME(LOC) 5N.1D; GLUCOSE,POINT OF CARE 132 MG/DL (70-110)
[2025-03-09 08:51] LABS: GLUCOMETER DEV NAME(LOC) 5N.1D; GLUCOSE,POINT OF CARE 165 MG/DL (70-110)
[2025-03-09] MEDS ORDERED: ASPIRIN 81 MG CHEWABLE TABLET PO SCH (09:00)
[2025-03-09] MEDS ORDERED: IOHEXOL 350 MG/ML 100 ML VIAL ONE (10:49)
[2025-03-09] MEDS ORDERED: SODIUM CHLORIDE 0.9% 100 ML ONE (10:50)
[2025-03-09] MEDS ORDERED: 0.9% SODIUM CHLORIDE 10 ML SYRINGE IVP PRN (11:30)
[2025-03-09 12:37] LABS: PLATELET COUNT (AUTO) 115 K/uL (150-450); RED BLOOD CELL COUNT(AUTO) 5.19 MIL/uL (4.00-5.20); RED CELL DISTRIBUTION WIDTH 16.4 % (11.5-14.5); WHITE BLOOD COUNT (AUTO) 12.3 K/uL (4.5-11.0)
[2025-03-09 12:44] LABS: CALCIUM, TOTAL 8.7 mg/dL (8.8-10.5); CREATININE 1.12 mg/dL (0.60-1.30); GLOMERULAR FILTR. RATE CALC 47 mL/min (>60); GLUCOSE,RANDOM 153 mg/dL (70-110); SODIUM SERUM 139 mmol/L (136-145); UREA NITROGEN, BLOOD 26 mg/dL (7-18)
[2025-03-09 12:48] LABS: ASPARTATE AMINOTRANSFERASE 27 U/L (15-37); LACTATE DEHYDROGENASE 234 U/L (81-234); TOTAL PROTEIN, SERUM 7.6 g/dL (6.4-8.2)
[2025-03-09 12:50] LABS: LACTIC ACID 1.8 mmol/L (0.4-2.0)
[2025-03-09] MEDS: SODIUM CHLORIDE 0.9% 1,500 ML IV ONE (12:51)
[2025-03-09] MEDS: CefTRIAXone 1 GM/DEXTROSE 50 ML IV SCH (14:37)
[2025-03-10] MEDS: SODIUM CHLORIDE 0.9% 1,000 ML IV SCH (01:16)
[2025-03-10 03:25] VITALS: BP 127/64; PULSE 107; RESP 18; TEMP 98.8; O2SAT 98
[2025-03-10 06:05] LABS: GLUCOMETER DEV NAME(LOC) 5N.2C; GLUCOSE,POINT OF CARE 164 MG/DL (70-110)
[2025-03-10 06:05] LABS: GLUCOMETER DEV NAME(LOC) 5N.2C; GLUCOSE,POINT OF CARE 163 MG/DL (70-110)
[2025-03-10 06:05] LABS: GLUCOMETER DEV NAME(LOC) 5N.2C; GLUCOSE,POINT OF CARE 169 MG/DL (70-110)
[2025-03-10 07:28] LABS: PLATELET COUNT (AUTO) 115 K/uL (150-450); RED BLOOD CELL COUNT(AUTO) 4.41 MIL/uL (4.00-5.20); RED CELL DISTRIBUTION WIDTH 16.6 % (11.5-14.5); WHITE BLOOD COUNT (AUTO) 9.3 K/uL (4.5-11.0)
[2025-03-10 07:37] LABS: CALCIUM, TOTAL 8.0 mg/dL (8.8-10.5); CREATININE 1.03 mg/dL (0.60-1.30); GLOMERULAR FILTR. RATE CALC 52.0 mL/min (>60); GLUCOSE,RANDOM 127.0 mg/dL (70-110); SODIUM SERUM 143.0 mmol/L (136-145); UREA NITROGEN, BLOOD 27.0 mg/dL (7-18)
[2025-03-10 08:42] VITALS: BP 120/67; PULSE 95; RESP 18; TEMP 98.4; O2SAT 96
[2025-03-10] MEDS: POTASSIUM CHL 10 MEQ/WATER 50 ML IV PRN (09:29)
[2025-03-10 11:46] VITALS: BP 130/59; PULSE 79; RESP 17; TEMP 98.2; O2SAT 97
[2025-03-10 12:45] LABS: GLUCOMETER DEV NAME(LOC) 5N.2C; GLUCOSE,POINT OF CARE 129 MG/DL (70-110)
[2025-03-10 12:45] LABS: GLUCOMETER DEV NAME(LOC) 5N.2C; GLUCOSE,POINT OF CARE 131 MG/DL (70-110)
[2025-03-10 15:49] VITALS: BP 142/88; PULSE 77; RESP 17; TEMP 98.6; O2SAT 95
[2025-03-10 19:21] VITALS: BP 140/63; PULSE 74; RESP 18; TEMP 97.5; O2SAT 97
[2025-03-10 21:21] LABS: GLUCOMETER DEV NAME(LOC) 5N.2C; GLUCOSE,POINT OF CARE 127 MG/DL (70-110)
[2025-03-10 21:21] LABS: GLUCOMETER DEV NAME(LOC) 5N.2C; GLUCOSE,POINT OF CARE 137 MG/DL (70-110)
[2025-03-10 23:02] VITALS: BP 127/54; PULSE 63; RESP 18; TEMP 98.4; O2SAT 96
[2025-03-11 03:29] VITALS: BP 135/63; PULSE 64; RESP 18; TEMP 98.1; O2SAT 96
[2025-03-11 06:31] LABS: PLATELET COUNT (AUTO) 114 K/uL (150-450); RED BLOOD CELL COUNT(AUTO) 4.24 MIL/uL (4.00-5.20); RED CELL DISTRIBUTION WIDTH 16.7 % (11.5-14.5); WHITE BLOOD COUNT (AUTO) 6.3 K/uL (4.5-11.0)
[2025-03-11 06:41] LABS: CALCIUM, TOTAL 7.9 mg/dL (8.8-10.5); CREATININE 0.84 mg/dL (0.60-1.30); GLOMERULAR FILTR. RATE CALC > 60 mL/min (>60); GLUCOSE,RANDOM 103 mg/dL (70-110); SODIUM SERUM 146 mmol/L (136-145); UREA NITROGEN, BLOOD 26 mg/dL (7-18)
[2025-03-11 06:46] LABS: GLUCOMETER DEV NAME(LOC) 5S.2D; GLUCOSE,POINT OF CARE 107 MG/DL (70-110)
[2025-03-11 07:02] VITALS: BP 157/73; PULSE 62; RESP 18; TEMP 98; O2SAT 95
[2025-03-11 09:12] LABS: RBC MORPHOLOGY COMMENT ABNORMAL RBC MORPH
[2025-03-11 11:16] VITALS: BP 138/78; PULSE 58; RESP 18; TEMP 98.2; O2SAT 96
[2025-03-11 12:15] LABS: GLUCOMETER DEV NAME(LOC) 5S.2D; GLUCOSE,POINT OF CARE 106 MG/DL (70-110)
[2025-03-11] MEDS ORDERED: BISACODYL 10 MG RECTAL RECTAL SUPPOSITORY PR PRN (12:30)
[2025-03-11] MEDS ORDERED: HYDROCODONE/ACETAMINOPHEN 5-325 MG TABLET PO PRN (12:30)
[2025-03-11] MEDS ORDERED: MORPHINE SULFATE 4 MG/ML SYRINGE IVP PRN (12:30)
[2025-03-11] MEDS ORDERED: ACETAMINOPHEN 325 MG TABLET PO PRN (12:30)
[2025-03-11] MEDS ORDERED: ONDANSETRON HCL 4 MG/2 ML VIAL IVP PRN (12:30)
[2025-03-11] MEDS ORDERED: MAGNESIUM HYDROXIDE SUSPENSION 30 ML UDCUP PO PRN (12:30)
[2025-03-11] MEDS ORDERED: ZOLPIDEM TARTRATE 5 MG TABLET PO PRN (12:30)
[2025-03-11 16:06] VITALS: BP 142/72; PULSE 60; RESP 18; TEMP 98; O2SAT 95
[2025-03-11] MEDS: DEXTROSE 5%-0.45% SODIUM CHL 1,000 ML IV SCH (16:34)
[2025-03-11 20:00] VITALS: BP 130/60; PULSE 69; RESP 18; TEMP 98.6; O2SAT 98
[2025-03-11] MEDS: DOCUSATE SODIUM 100 MG CAPSULE PO SCH (21:00)
[2025-03-12] VITALS: BP 119/78; PULSE 66; RESP 18; TEMP 97.7; O2SAT 100
[2025-03-12 04:00] VITALS: BP 115/74; PULSE 61; RESP 18; TEMP 98; O2SAT 98
[2025-03-12 04:21] LABS: GLUCOMETER DEV NAME(LOC) 5S.2D; GLUCOSE,POINT OF CARE 129 MG/DL (70-110)
[2025-03-12 04:21] LABS: GLUCOMETER DEV NAME(LOC) 5S.2D; GLUCOSE,POINT OF CARE 195 MG/DL (70-110)
[2025-03-12] MEDS: PANTOPRAZOLE SODIUM 40 MG/VIAL IVP SCH (04:48)
[2025-03-12 06:52] LABS: PLATELET COUNT (AUTO) 146 K/uL (150-450); RED BLOOD CELL COUNT(AUTO) 4.52 MIL/uL (4.00-5.20); RED CELL DISTRIBUTION WIDTH 17.1 % (11.5-14.5); WHITE BLOOD COUNT (AUTO) 6.1 K/uL (4.5-11.0)
[2025-03-12 07:10] VITALS: BP 136/55; PULSE 62; RESP 18; TEMP 98; O2SAT 98
[2025-03-12 07:10] LABS: GLUCOMETER DEV NAME(LOC) 5S.2D; GLUCOSE,POINT OF CARE 180 MG/DL (70-110)
[2025-03-12] MEDS ORDERED: PANTOPRAZOLE SODIUM 40 MG DR TABLET PO SCH (09:00)
[2025-03-12 11:26] VITALS: BP 144/88; PULSE 59; RESP 18; TEMP 98; O2SAT 97
[2025-03-12 12:59] LABS: CALCIUM, TOTAL 7.7 mg/dL (8.8-10.5); CREATININE 0.68 mg/dL (0.60-1.30); GLOMERULAR FILTR. RATE CALC > 60 mL/min (>60); GLUCOSE,RANDOM 179 mg/dL (70-110); SODIUM SERUM 144 mmol/L (136-145); UREA NITROGEN, BLOOD 21 mg/dL (7-18)
[2025-03-12 14:21] LABS: GLUCOMETER DEV NAME(LOC) 5S.2D; GLUCOSE,POINT OF CARE 154 MG/DL (70-110)
[2025-03-12 15:48] VITALS: BP_SYST 147; BP_SYST 176; BP_DIAS 57; PULSE 58; RESP 18; TEMP 97.9; O2SAT 96
[2025-03-12 20:05] LABS: GLUCOMETER DEV NAME(LOC) 5S.2D; GLUCOSE,POINT OF CARE 138 MG/DL (70-110)
== END 2025-03-12 18:45 | DRG 871 ==
LOC: EMS 23:18 → EDH 03-08 04:36 → 5N 03-08 07:03
PROVIDERS: ADMIT Internal Medicine; ATTEND Internal Medicine
DX: A41.9 Sepsis, unspecified organism (principal); G93.41 Metabolic encephalopathy; I21.A1 Myocardial infarction type 2; E87.1 Hypo-osmolality and hyponatremia; M62.82 Rhabdomyolysis; N30.80 Other cystitis without hematuria; R41.89 Other symptoms and signs involving cognitive functions and awareness; E11.9 Type 2 diabetes mellitus without complications; E87.6 Hypokalemia; I10 Essential (primary) hypertension; E78.5 Hyperlipidemia, unspecified; K21.9 Gastro-esophageal reflux disease without esophagitis; F32.A Depression, unspecified; N31.9 Neuromuscular dysfunction of bladder, unspecified; R33.9 Retention of urine, unspecified; E86.0 Dehydration; T42.6X5A Adverse effect of other antiepileptic and sedative-hypnotic drugs, initial encounter; Y92.89 Other specified places as the place of occurrence of the external cause; Z91.010 Allergy to peanuts; Z88.8 Allergy status to other drugs, medicaments and biological substances; Z79.899 Other long term (current) drug therapy
CPT/HCPCS: 70450; 71045; 71260; 72193; 74160; 80048; 80053; 80164; 81001; 82140; 82271; 82550; 82962; 83605; 83615; 83735; 84132; 84145; 84484; 85025; 85730; 87040; 92526; 92610; 93005; 93306; 97163; 97166; 97530; 97535; 99285; J0696; J1644; J1815; J2060; J2470; J3480; J7030; J7050; J7120; 36415-L1; 36415-TC